=== PATIENT | female | born 1985 | race Caucasian/White ===

== ENCOUNTER → 2017-12-06 | Outpatient (CLI) | payer OTHER ==
--- NOTE | 2017-12-07 05:47 | GHP ---
[f rep st] HISTORY AND PHYSICAL DATE OF ADMISSION: 12/06/2017 HISTORY OF PRESENT ILLNESS: Mirella is a 32-year-old, G3, P0-0-2-0, with MAB noted at 7 weeks 3 days gestation. She was seen by [facility] on 12/06/2017, where single IUP was consistent with 6 weeks 4 days, and no cardiac activity was noted. There was a left inferior subchorionic bleed that was measuring 1.6 x 2.6 x 2.0 cm. The ultrasound noted to have a gestational sac in the left lateral, and there was a decidual reaction suggesting a divided uterus on the right side. This is most consistent with a uterine septum. The patient was counseled on options for MAB versus expected management, medical management, or D&C. Patient opted for dilation and curettage. Her EDC was noted to be 12/22/2018 This is consistent with her LMP and a 6- week ultrasound. REVIEW OF SYSTEMS: CONSTITUTIONAL: Denies any fevers, chills, fatigue. HEENT : Denies any visual changes, difficulty swallowing, or hearing loss. CARDIOVASCULAR: Denies any chest pain, palpitations, leg swelling. RESPIRATORY : Denies any coughing, wheezing, shortness of breath. GI: Denies any vomiting , diarrhea, constipation. She does report positive nausea. : Denies any dysuria, frequency, urgency. She does report positive vaginal bleeding, though no active bleeding was noted on 12/06/2017. MUSCULOSKELETAL: She denies any muscle or bone pain. SKIN: Denies any rashes. NEURO: Denies any headache, seizures, lightheadedness, dizziness, loss of consciousness. PSYCHIATRIC: Denies any depression, sadness appropriate for situation. PRIOR OBSTETRICAL HISTORY: In 2017, she had an 8-week SAB, failed Cytotec, followed by D and C. In 2018, she had a di-di twin 8-week SAB, also failed Cytotec, followed by a D and C. PAST MEDICAL HISTORY: Noncontributory. PAST SURGICAL HISTORY: D & C x2. SOCIAL HISTORY: Denies any tobacco, alcohol, drug use. She is . She works as an power distribution engineer. ALLERGIES: Amoxicillin. MEDICATIONS: Methyl folate 4000; methyl B-12 1000; ASA, which was stopped on ; vitamin; progesterone. LABS: She is Rh positive, rubella immune, HIV, hepatitis B, RPR all nonreactive. PHYSICAL EXAMINATION: CONSTITUTIONAL: A well-nourished white female, alert and oriented x3. HEENT: Normocephalic and atraumatic. HEART: Regular rate and rhythm. No murmur noted. CHEST: Clear to auscultation bilaterally. ABDOMEN: Soft, nontender. EXTREMITIES: No edema. Negative Mary Kate's sign. NEURO: Grossly normal. PSYCH: Normal affect, appropriate for situation. ASSESSMENT: 1. A 32-year-old, G3, P0-0-2-0, with missed at 6 weeks 4 days. 2. Likely uterine septum. 3. Rh positive. PLAN: Admit to Labor and Delivery to proceed with D and C. /[id number]/MODL MTDD
== END ==
LOC: FIMAGING 12:57
PROVIDERS: ATTEND Advanced Practice Midwife
DX: O09.291 Supervision of pregnancy with other poor reproductive or obstetric history, first trimester (principal); O02.1 Missed abortion; O20.8 Other hemorrhage in early pregnancy; Z3A.01 Less than 8 weeks gestation of pregnancy

== ENCOUNTER 2017-12-07 07:35 | Day surgery (SDC) | payer OTHER ==
[2017-12-07] MEDS ORDERED: DOXYCYCLINE HYCLATE 100 MG CAP/TAB PO ONE (09:22)
[2017-12-07] MEDS ORDERED: LR 1,000 ML IV ONE (09:22)
[2017-12-07] MEDS ORDERED: MIDAZOLAM 2 MG/2 ML VIAL ONE (09:59)
[2017-12-07] MEDS ORDERED: fentaNYL 100 MCG/2 ML INJ ONE (09:59)
[2017-12-07] MEDS ORDERED: PROPOFOL/EMULSION 500 MG/50 ML BOTTLE IV ONE (10:00)
[2017-12-07] MEDS ORDERED: LIDOCAINE 2% 5 ML SDV ONE (10:03)
--- NOTE | 2017-12-07 10:11 | PDANEPAE ---
ANE History of Present Illness muiscarriage 7 wk ANE Past Medical History Past Medical History: multiple d&c for miscarriages, christoph anes well, allergic: amox and sulfa, takes pnv, has exercise induced asthma, MTHFR; npo mn; 101/66, 66, 96% - Pulmonary History Hx Sleep Apnea: No Sleep Apnea Screening Result - Last Documented: Negative ANE Review of Systems Review of Systems: see pmh - Exercise capacity Exercise capacity: <4 METS ANE Patient History - Allergies Allergies/Adverse Reactions: amoxicillin Allergy (Verified 12/07/17 09:00) Penicillins Allergy (Verified 12/07/17 08:31) - Home Medications Home Medications: Vit27&Calcium/Iron/FA [] 12/07/17 [Last Taken 1 Day Ago ~12/06] - NPO status NPO Since - Liquids (Date): 12/06/17 NPO Since - Liquids (Time): 21:00 NPO Since - Solids (Date): 12/06/17 NPO Since - Solids (Time): 20:00 - Anes Hx Anes Hx: no prior problems ANE Labs/Vital Signs - Vital Signs Blood Pressure: 101/66 Heart Rate: 64 Respiratory Rate: 16 O2 Sat (%): 97 Height: 172.72 cm Weight: 65.771 kg ANE Physical Exam - Airway Neck exam: FROM Mallampati Score: Class 2 Mouth exam: normal dental/mouth exam - Pulmonary Pulmonary: no respiratory distress - Cardiovascular Cardiovascular: regular rate and rhythym - ASA Status ASA Status: II ANE Anesthesia Plan Anesthesia Plan: MAC
[2017-12-07] MEDS ORDERED: KETOROLAC 30 MG/1 ML SDV ONE (11:09)
[2017-12-07] MEDS ORDERED: MEPERIDINE 25 MG/0.5 ML AMP IVP PRN (11:30)
[2017-12-07] MEDS ORDERED: fentaNYL 100 MCG/2 ML INJ IVP PRN (11:30)
[2017-12-07] MEDS ORDERED: ONDANSETRON 4 MG/2 ML VIAL IVP PRN (11:30)
[2017-12-07] MEDS ORDERED: HYDROCODONE/APAP 5/325 TAB PO PRN (11:30)
--- NOTE | 2017-12-07 11:31 | POSTANESTH ---
Post Anesthetic Evaluation Cardiovascular Status: Normal, Stable Respiratory Status: Normal, Stable Level of Consciousness/Mental Status: Can Participate in Eval Pain Control: Adequate, Prn Tx Ordered Nausea/Vomiting Control: Adequate, Prn Tx Ordered Complications Possibly Related to Anesthesia: None Noted
--- NOTE | 2017-12-07 12:40 | POSTOPPROG ---
Post Op Note Date of Operation: 12/07/17 Surgeon: Estela Pedroza Anesthesiologist: Jaime Miner MD Anesthesia: IV Sedation Pre-op Diagnosis: MAB at 6w4d, recurrent ab Post-op Diagnosis: same Indication: U/S with MAB noted 12/06, third loss by DnC - concern for septum on u/ s Procedure: suction and sharp dilation and currettage Findings: 2 pockets of fluid on u/s, one with tissue, no palp septum, mod tissue Inf/Abcess present in the surg proc area at time of surgery?: No Depth: Organ Space EBL: 50-100 (100 cc) Complications: none Specimen(s): POCs
[2017-12-07 13:02] VITALS: BP 101/66
--- NOTE | 2017-12-07 13:19 | GOP ---
[f rep st] OPERATIVE REPORT DATE OF OPERATION: 12/07/2017 SURGEON: Estela Pedroza MD ANESTHESIOLOGIST: Jaime Miner MD with IV sedation. PREOPERATIVE DIAGNOSIS: Missed at 6 weeks 4 days, recurrent abortions. POSTOPERATIVE DIAGNOSIS: Missed at 6 weeks 4 days, recurrent abortions. PROCEDURE PERFORMED: FINDINGS: DESCRIPTION OF PROCEDURE: PROCEDURE: Suction and sharp dilatation and curettage. PREOPERATIVE NOTE: The patient is a 32-year-old, G3, A2, white female with a missed AB noted at 7 we eks 3 days by last period, measuring 6 weeks 4 days with no cardiac activity with a specialists ultrasound on 12/06/2017. The patient has had several episodes of large bleeds since November 29 and was noted to have a subchorionic bleed, approximately 2 cm. The gestational sac was noted in the lef t lateral uterus with visual concern of possible uterine septum with fluid areas in the [place]. The patient has had 2 other first-trimester missed ABs for which she attempted misoprostol kylah gement, but had no response and proceeded with D and C's to manage both losses. She wanted to proceed with definitive management with D and C. Risks and benefits of the procedure discussed a nd the consent form signed. The patient plans on following up with [facility] for evaluation of possible se ptum and management. OPERATIVE REPORT: The patient was taken to the operating room where following satisfactory IV sedati on, the patient was placed in dorsal lithotomy position, consistent with a vaginal procedure. The pa tient had SCDs on her lower extremities for DVT prophylaxis and had received an oral dose of doxycycl ine prior to coming to the operating room. The patient also had urinated prior to coming to the oper ating room. The patient's perineum and vagina were prepped and the patient draped in usual sterile m emma for vaginal procedure. A sterile speculum was placed within the vagina and an atraumatic grasp er placed on the anterior lip of the cervix. Gentle traction was applied and the cervix was easily d ilated up to an 8.5 Hegar dilator. A #8 tip was used on the suction machine. Multiple passes were m rip with the suction machine and abundant tissue was obtained. Abdominal ultrasound was done prior t o the procedure and the 2 fluid sacs in the uterus were identified easily. Following multiple passes with the suction tip, then the ultrasound showed that there was no more fluid collection. The sharp curettage was used and there was a small amount of tissue obtained. There was good uterine cry felt throughout the cavity. One final pass was made. No additional tissue and minimal blood was obtaine d with the suction. The ultrasound after the procedure was completed showed that the lining was thin . With the palpation with a sharp curette there was no obvious ridge that was consistent with a sept um. Following the procedure, the grasper was taken off the cervix and there was no additional bleedi ng. The patient tolerated the procedure well. She was cleaned off and taken out of position and the n she was awoken and taken to the recovery room in stable condition. Less than 100 cc total EBL. Th e PSC's were sent to pathology for full evaluation. The patient declined Anora testing. /[id number]/MODL
== END 2017-12-07 13:20 | disposition home or self-care (01) ==
LOC: FOBOP 07:35
PROVIDERS: ATTEND Obstetrics & Gynecology
PROC: 10D17ZZ Extraction of Products of Conception, Retained, Via Natural or Artificial Opening (ICD-10-PCS; principal; 2017-12-07)
DX: O02.1 Missed abortion (principal); N96 Recurrent pregnancy loss
CPT/HCPCS: J1885; J2250; J2704; J3010

== ENCOUNTER → 2018-10-08 | Outpatient (CLI) | payer OTHER | LOC: FIMAGING 09:18 ==